=== PATIENT | female | born 1940 | race American Indian/Alaskan Native ===

== ENCOUNTER 2017-06-23 08:17 | Inpatient (IN) | payer MEDICARE ==
[2017-06-23 10:53] LABS: Basophils # (Auto) 0.1 K/mm3 (0.0-0.1); Basophils % (Auto) 0.7 % (0.0-1.8); Eosinophils # (Auto) 0.2 K/mm3 (0.0-0.4); Eosinophils % (Auto) 2.1 % (0.0-4.3); Hematocrit 40.6 % (30.3-42.9); Hemoglobin 13.9 gm/dl (10.1-14.3); Lymphocytes # (Auto) 2.7 K/mm3 (1.2-5.4); Lymphocytes % (Auto) 29.6 % (13.4-35.0); Mean Corpuscular HGB Conc 34 % (30-34); Mean Corpuscular Hemoglobin 31 pg (28-32); Mean Corpuscular Volume 91 fl (79-97); Monocytes # (Auto) 0.7 K/mm3 (0.0-0.8); Monocytes % (Auto) 7.1 % (0.0-7.3); Platelet Count 251 K/mm3 (140-440); Red Blood Count 4.45 M/mm3 (3.65-5.03)
[2017-06-23 11:04] LABS: Bacteria,Urine 2+ /HPF (Negative); Bilirubin,Urine NEG (Negative); Blood,Urine SM (Negative); Color,Urine Yellow (Yellow); Mucus,Urine FEW /HPF; Nitrite,Urine NEG (Negative); Urobilinogen,Urine < 2.0 mg/dL (<2.0)
[2017-06-23] MEDS ORDERED: NORCO 5/325 PO ONE (11:22)
--- NOTE | 2017-06-23 11:25 | XRay Report ---
LEFT HIP, 2 views: History: Left hip pain. Mild osteopenia is evident. Mild osteoarthritic changes are identified at the left hip. No evidence for fracture, dislocation or osteonecrosis. Diffuse vascular calcifications are noted IMPRESSION: Osteopenia. Mild osteoarthritic changes. No acute process identified.
--- NOTE | 2017-06-23 11:26 | XRay Report ---
LEFT TIBIA/FIBULA: History: Left leg pain. Mild osteopenia is evident. No evidence for fracture, bony destruction or bone lesion. The soft tissues are unremarkable. IMPRESSION: Osteopenia. Otherwise, unremarkable exam.
[2017-06-23 11:42] LABS: Albumin 4.2 g/dL (3.9-5); Calcium 10.4 mg/dL (8.4-10.2)
--- NOTE | 2017-06-23 11:59 | Emergency Department Report ---
ED General Adult HPI - General Chief complaint: Weakness Stated complaint: LEG PAIN Time Seen by Provider: 06/23/17 10:32 Source: EMS Mode of arrival: Stretcher Limitations: Physical Limitation - History of Present Illness Initial comments: Patient resides at home with her family who have brought her in today for evaluation. She states that she is weak and has had left knee pain. The symptoms have been present for at least 3 weeks. The family thought that the left thigh might be swollen. They brought her in for general evaluation. She does have a primary care physician. She is ordinarily able to walk with a walker. They state that she has left leg weakness from a previous stroke. They do not report any new weakness or any focal neurological symptoms. She denies fever or chills. She's had no abdominal pain no chest pain. The family has not observed any cough or shortness of breath. She is to have home health but does not have this currently. -: week(s) Location: left Radiation: non-radiation Severity scale (0 -10): 5 Quality: aching Consistency: intermittent Improves with: none Worsens with: none Treatments Prior to Arrival: none - Related Data Home Medications Medication Instructions Recorded Confirmed Last Taken Amlodipine Besylate [Norvasc] 10 mg PO QDAY 06/23/17 06/23/17 06/22/17 Clopidogrel Bisulfate [Plavix] 75 mg PO QDAY 06/23/17 06/23/17 06/22/17 Gabapentin [Neurontin] 300 mg PO QDAY 06/23/17 06/23/17 06/22/17 Hydrochlorothiazide [Hctz] 12.5 mg PO QDAY 06/23/17 06/23/17 06/22/17 Latanoprost 0.005% [Xalatan 0.005%] 1 drop OP QPM 06/23/17 06/23/17 06/22/17 Pravastatin [Pravachol] 40 mg PO DAILY 06/23/17 06/23/17 06/22/17 Allergies Allergy/AdvReac Type Severity Reaction Status Date / Time lisinopril Allergy Angioedema Verified 04/21/14 13:44 ED Review of Systems ROS: Stated complaint: LEG PAIN Other details as noted in HPI Constitutional: weakness. denies: chills, fever Eyes: denies: eye pain, eye discharge, vision change ENT: denies: ear pain, throat pain Respiratory: denies: cough, shortness of breath, wheezing Cardiovascular: denies: chest pain, palpitations Endocrine: no symptoms reported Gastrointestinal: denies: abdominal pain, nausea, diarrhea Genitourinary: denies: urgency, dysuria, discharge Musculoskeletal: denies: back pain, joint swelling, arthralgia Skin: denies: rash, lesions Neurological: denies: headache, weakness, paresthesias Psychiatric: denies: anxiety, depression Hematological/Lymphatic: denies: easy bleeding, easy bruising ED Past Medical Hx - Past Medical History Hx Hypertension: Yes Hx CVA: Yes Hx Diabetes: Yes - Surgical History Additional Surgical History: Brain surgery - Social History Smoking Status: Never Smoker Substance Use Type: None - Medications Home Medications: Home Medications Medication Instructions Recorded Confirmed Last Taken Type Amlodipine Besylate [Norvasc] 10 mg PO QDAY 06/23/17 06/23/17 06/22/17 History Clopidogrel Bisulfate [Plavix] 75 mg PO QDAY 06/23/17 06/23/17 06/22/17 History Gabapentin [Neurontin] 300 mg PO QDAY 06/23/17 06/23/17 06/22/17 History Hydrochlorothiazide [Hctz] 12.5 mg PO QDAY 06/23/17 06/23/17 06/22/17 History Latanoprost 0.005% [Xalatan 0.005%] 1 drop OP QPM 06/23/17 06/23/17 06/22/17 History Pravastatin [Pravachol] 40 mg PO DAILY 06/23/17 06/23/17 06/22/17 History ED Physical Exam - General Limitations: Physical Limitation General appearance: alert, in no apparent distress - Head Head exam: Present: atraumatic, normocephalic - Eye Eye exam: Present: normal appearance. Absent: scleral icterus - ENT ENT exam: Present: mucous membranes moist - Neck Neck exam: Present: normal inspection. Absent: tenderness, meningismus - Respiratory Respiratory exam: Present: normal lung sounds bilaterally. Absent: respiratory distress - Cardiovascular Cardiovascular Exam: Present: regular rate, normal rhythm. Absent: systolic murmur, diastolic murmur, rubs, gallop - GI/Abdominal GI/Abdominal exam: Present: soft, normal bowel sounds. Absent: distended, tenderness, guarding, rebound, rigid - Extremities Exam Extremities exam: Present: normal inspection, tenderness - Back Exam Back exam: Present: normal inspection - Neurological Exam Neurological exam: Present: alert, oriented X3, CN II-XII intact. Absent: motor sensory deficit - Psychiatric Psychiatric exam: Present: anxious, flat affect - Skin Skin exam: Present: warm, dry, intact, normal color. Absent: rash ED Course Vital Signs 06/23/17 09:22 Temperature 97.8 F Pulse Rate 75 Respiratory 18 Rate Blood Pressure 158/63 Blood Pressure 158/63 [Left] O2 Sat by Pulse 99 Oximetry - Reevaluation(s) Reevaluation #1: Discussed with Dr. Antoine. IV fluids initiated. The patient was admitted to the hospitalist service for further evaluation. It looks like she needs home health assistance. She is also really quite weak and may need further evaluation thereof. 06/23/17 14:37 ED Medical Decision Making - Lab Data Result diagrams: 06/23/17 10:29 06/23/17 10:29 Laboratory Results - last 24 hr 06/23/17 06/23/17 06/23/17 10:18 10:29 10:29 WBC 9.2 RBC 4.45 Hgb 13.9 Hct 40.6 MCV 91 MCH 31 MCHC 34 RDW 13.0 L Plt Count 251 Lymph % (Auto) 29.6 [place] % (Auto) 7.1 Eos % (Auto) 2.1 Baso % (Auto) 0.7 Lymph # 2.7 [place] # 0.7 Eos # 0.2 Baso # 0.1 Seg Neutrophils % 60.5 Seg Neutrophils # 5.5 Sodium 150 H Potassium 3.9 Chloride 109.1 H Carbon Dioxide 29 Anion Gap 16 BUN 19 H Creatinine 1.4 H Estimated GFR 44 BUN/Creatinine Ratio 14 Glucose 101 H Calcium 10.4 H Total Bilirubin 0.40 AST 16 ALT 11 Alkaline Phosphatase 53 Total Protein 7.4 Albumin 4.2 Albumin/Globulin Ratio 1.3 Urine Color Yellow Urine Turbidity Clear Urine pH 6.0 Ur Specific [place] 1.014 Urine Protein 30 mg/dl Urine Glucose (UA) Neg Urine Ketones Neg Urine Blood Sm Urine Nitrite Neg Urine Bilirubin Neg Urine Urobilinogen < 2.0 Ur Leukocyte Esterase Neg Urine WBC (Auto) 1.0 Urine RBC (Auto) 4.0 U Epithel Cells (Auto) 1.0 Urine Bacteria (Auto) 2+ Urine Mucus Few Critical care attestation.: If time is entered above; I have spent that time in minutes in the direct care of this critically ill patient, excluding procedure time. ED Disposition Clinical Impression: Hypernatremia, Volume depletion, Arthralgia of knee, left, Generalized weakness Disposition: DC-[id number] OP ADMIT IP TO THIS HOSP Is pt being admited?: Yes Does the pt Need Aspirin: Yes Condition: Stable Time of Disposition: 14:37
--- NOTE | 2017-06-23 12:14 | Cat Scan Report ---
CT HEAD WITHOUT CONTRAST: HISTORY: Left leg weakness. TECHNIQUE: Sequential CT images without contrast. FINDINGS: Advanced diffuse volume loss and chronic white matter changes are identified. A chronic cortical infarct high in the left posterior frontal lobe measures up to 2.4 cm. Chronic lacunar infarcts measuring less than 1 cm are identified in the right thalamus and posterior right cerebellar hemisphere. There is no evidence for hemorrhage, mass, extra-axial fluid collection or large area of acute ischemia on noncontrast CT. Ventricular size is prominent but symmetric which is probably secondary to volume loss. The left frontal sinus is opacified. There is partial opacification of the ethmoid air cells. The remaining visualized sinuses and mastoid air cells are clear. IMPRESSION: Evidence of atrophy and microangiopathic ischemic disease. Chronic focal infarcts as described. No acute intracranial process noted. Chronic sinus disease.
--- NOTE | 2017-06-23 13:03 | History and Physical Report ---
History of Present Illness Chief complaint: she is weak, and has pain in her leg History of present illness: 76 YO Female with HTN, CVA with RHP, DM presents to ED for evaluation. Pt nonverbal, and unable to provide history. Pt history provided by son, who is present during exam and interview. Pt son states that his mother has experienced weakness and pain in her left knee over the past 3 weeks, with persistent symptoms during the same time period. The family thought that the left thigh might be swollen. They brought her in for general evaluation. Son has also acknowledged decreased dietary intake, decreased interaction with family, and increased confusion over the past 1 month. No reports of fever, chills, CP, Palpitations, falls, trauma, NVD, syncope, seizures, vertigo, BRBPR , productive cough, or recent ill contacts. Pt seen and evaluated in ED and found to have acute renal failure. Pt initiated on IVF resuscitation therapy, and admitted to medical floor. Past History Past Medical History: diabetes, hypertension, stroke Past Surgical History: Other (Brain surgery) Social history: , lives with family. denies: smoking, alcohol abuse, prescription drug abuse Family history: hypertension Medications and Allergies Allergies Allergy/AdvReac Type Severity Reaction Status Date / Time lisinopril Allergy Angioedema Verified 04/21/14 13:44 Home Medications Medication Instructions Recorded Confirmed Last Taken Type Amlodipine Besylate [Norvasc] 10 mg PO QDAY 06/23/17 06/23/17 06/22/17 History Clopidogrel Bisulfate [Plavix] 75 mg PO QDAY 06/23/17 06/23/17 06/22/17 History Gabapentin [Neurontin] 300 mg PO QDAY 06/23/17 06/23/17 06/22/17 History Hydrochlorothiazide [Hctz] 12.5 mg PO QDAY 06/23/17 06/23/17 06/22/17 History Latanoprost 0.005% [Xalatan 0.005%] 1 drop OP QPM 06/23/17 06/23/17 06/22/17 History Pravastatin [Pravachol] 40 mg PO DAILY 06/23/17 06/23/17 06/22/17 History Active Meds: Active Medications Dextrose/Sodium Chloride (D5/0.45ns) 1,000 mls @ 125 mls/hr IV DIRECT GERALDINE Review of Systems ROS unobtainable: due to mental status Exam - Constitutional Vitals: Temp Pulse Resp BP Pulse Ox 97.8 F 75 18 158/63 99 06/23/17 09:22 06/23/17 09:22 06/23/17 09:22 06/23/17 09:22 06/23/17 09:22 General appearance: Present: mild distress - EENT Eyes: Present: PERRL ENT: hearing intact, clear oral mucosa - Neck Neck: Present: supple, normal ROM - Respiratory Respiratory effort: normal Respiratory: bilateral: diminished - Cardiovascular Heart Sounds: Present: S1 & S2. Absent: rub, click - Extremities Extremities: pulses symmetrical, No edema Peripheral Pulses: within normal limits - Abdominal General gastrointestinal: Present: soft Female genitourinary: Present: normal - Integumentary Integumentary: Present: clear, dry, clammy, decreased turgor - Musculoskeletal Musculoskeletal: generalized weakness - Psychiatric Psychiatric: no intact judgment & insight, no memory intact - Neurologic Neurologic: focal deficits, no moves all extremities, no gait normal Results - Labs CBC & Chem 7: 06/23/17 10:29 06/23/17 10:29 Labs: Abnormal lab results 06/23/17 06/23/17 Range/Units 10:29 10:29 RDW 13.0 L (13.2-15.2) % Sodium 150 H (137-145) mmol/L Chloride 109.1 H (98-107) mmol/L BUN 19 H (7-17) mg/dL Creatinine 1.4 H (0.7-1.2) mg/dL Glucose 101 H (65-100) mg/dL Calcium 10.4 H (8.4-10.2) mg/dL Assessment and Plan - Patient Problems (1) ARF (acute renal failure) Current Visit: Yes Status: Acute Qualifiers: Acute renal failure type: with acute tubular necrosis Qualified Code(s): N17.0 - Acute kidney failure with tubular necrosis Plan to address problem: IVF resuscitation therapy, supportive care, monitor uop q shift, monitor serum creatnine if worsening will consider urine electrolytes. (2) Dementia Current Visit: Yes Status: Acute Qualifiers: Dementia type: vascular dementia Dementia behavioral disturbance: without behavioral disturbance Qualified Code(s): F01.50 - Vascular dementia without behavioral disturbance Plan to address problem: Supportive care, CT head, neuro checks (3) Hypernatremia Current Visit: Yes Status: Acute Plan to address problem: IVF resuscitation, supportive care. (4) Volume depletion Current Visit: Yes Status: Acute Plan to address problem: encourage free water intake as tolerated, aspiration precautions, (5) DVT prophylaxis Current Visit: Yes Status: Acute
[2017-06-23] MEDS ORDERED: ZOFRAN IV PRN (13:04)
[2017-06-23] MEDS ORDERED: TYLENOL PO PRN (13:04)
[2017-06-23] MEDS ORDERED: NACL 0.45% 1000 ML 1,000 ML IV SCH (14:00)
--- NOTE | 2017-06-23 14:06 | XRay Report ---
AP CHEST: HISTORY: Hypertension There is poor inspiration. AP view of the chest demonstrates a normal mediastinal and cardiac contour with clear lungs and normal bony and soft tissue structures. IMPRESSION: Unremarkable AP chest.
[2017-06-23] MEDS: D5/0.45NS 1,000 ML IV SCH (14:09)
[2017-06-24 09:11] LABS: Calcium 9.3 mg/dL (8.4-10.2)
[2017-06-24] MEDS: BABY ASPIRIN PO SCH (10:00)
--- NOTE | 2017-06-24 15:27 | XRay Report ---
LEFT FEMUR, 2 VIEWS LEFT KNEE, 2 VIEWS History: Pain. Findings: There is borderline osteopenia. No evidence for fracture or come out malalignment, bone lesion or bony destruction. There are mild osteoarthritic changes at the left hip and left knee. Diffuse vascular calcifications are noted. Impression: No evidence for fracture. Mild degenerative changes. Peripheral vascular disease.
--- NOTE | 2017-06-24 15:31 | Progress Note ---
Assessment and Plan /ARF (acute renal failure) Likely due to vasomotor nephropathy IVF resuscitation therapy, supportive care, monitor uop q shift, monitor serum creatnine if worsening will consider urine electrolytes. / Dementia Supportive care, CT head unremarkable, cont neuro checks /Hypernatremia likely due to dehydration IVF resuscitation, supportive care. / Volume depletion encourage free water intake as tolerated, aspiration precautions, /left leg pain - xrys showed no fractures - will do uric acid level check and PT eval / DVT prophylaxis heparin Physical exam: General appearance: Present: no distress - EENT Eyes: Present: PERRL ENT: hearing intact, clear oral mucosa - Neck Neck: Present: supple, normal ROM - Respiratory Respiratory effort: normal Respiratory: bilateral: diminished - Cardiovascular Heart Sounds: Present: S1 & S2. Absent: rub, click - Extremities Extremities: pulses symmetrical, No edema Peripheral Pulses: within normal limits - Abdominal General gastrointestinal: Present: soft Female genitourinary: Present: normal - Integumentary Integumentary: Present: clear, dry, clammy, decreased turgor - Musculoskeletal Musculoskeletal: generalized weakness, unable to move left LE - Psychiatric Psychiatric: no intact judgment & insight, no memory intact - Neurologic Neurologic: no moves all extremities, no gait normal Subjective Date of service: 06/24/17 Interval history: Pt seen and examined c/o left leg pain and unable to move left leg due to pain Objective - Constitutional Vitals: Vital Signs - 12hr 06/24/17 06/24/17 06/24/17 03:36 08:13 09:01 Temperature 98.2 F 98.4 F Pulse Rate 57 L 64 Respiratory 14 18 Rate Blood Pressure 170/77 177/74 O2 Sat by Pulse 97 97 98 Oximetry 06/24/17 12:41 Temperature 98.8 F Pulse Rate 52 L Respiratory 16 Rate Blood Pressure 164/84 O2 Sat by Pulse 97 Oximetry - Labs CBC & Chem 7: 06/23/17 10:29 06/24/17 08:38
[2017-06-24] MEDS: D5/0.45NS 1,000 ML IV SCH (23:22)
[2017-06-25 07:13] LABS: BUN/Creatinine Ratio 17; Blood Urea Nitrogen 15 mg/dL (7-17); Calcium 9.3 mg/dL (8.4-10.2); Hemolysis Index 5
[2017-06-25] MEDS: D5/0.45NS 1,000 ML IV SCH (10:03)
[2017-06-25] MEDS: BABY ASPIRIN PO SCH (10:04)
--- NOTE | 2017-06-25 12:06 | Discharge Summary ---
Providers - Providers Date of Admission: 06/23/17 13:04 Date of discharge: 06/25/17 Attending physician: FILOMENA PRUITT 06/24/17 08:30 Speech Therapy Evaluation and Treat [CONS] Routine Reason For Exam: aspiration 06/24/17 15:28 Physical Therapy Evaluation and Treat [CONS] Routine Comment: Reason For Exam: d/c clearance Primary care physician: ATILIO YORK Hospitalization Condition: Stable Hospital course: 76 y/p AAF with h/o dementia limited physical activities presented with left leg pain mainly on her knee joint. In the ER she also noted to have elevated creatinine and hypernatremia. She was admitted for further evaluation and management. Discharge diagnosis management: /left leg/knee pain - likely due to osteopenia and osteoarthritis - xrys showed no fractures - normal uric acid level and s/p PT eval and recommended PT - recommended bone scan outpt /ARF (acute renal failure) Likely due to vasomotor nephropathy, resolved s/p IVF resuscitation therapy, supportive care, monitored uop q shift, / Dementia Supportive care, CT head unremarkable /Hypernatremia likely due to dehydration Improved with IVF resuscitation / Volume depletion encourage free water intake as tolerated, aspiration precautions, / DVT prophylaxis heparin Physical exam: General appearance: Present: no distress - EENT Eyes: Present: PERRL ENT: hearing intact, clear oral mucosa - Neck Neck: Present: supple, normal ROM - Respiratory Respiratory effort: normal Respiratory: bilateral: diminished - Cardiovascular Heart Sounds: Present: S1 & S2. Absent: rub, click - Extremities Extremities: pulses symmetrical, No edema Peripheral Pulses: within normal limits - Abdominal General gastrointestinal: Present: soft Female genitourinary: Present: normal - Integumentary Integumentary: Present: clear, dry, clammy, decreased turgor - Musculoskeletal Musculoskeletal: generalized weakness, unable to move left LE - Psychiatric Psychiatric: no intact judgment & insight, no memory intact - Neurologic Neurologic: no moves all extremities, no gait normal Disposition: DC/[place]-06 HOME UNDER HOME HLTH Time spent for discharge: 32 minutes Core Measure Documentation - Palliative Care Palliative Care/ Comfort Measures: Not Applicable - Core Measures Any of the following diagnoses?: none Exam - Constitutional Vitals: Temp Pulse Resp BP Pulse Ox 98.8 F 64 16 170/77 98 06/25/17 11:12 06/25/17 11:12 06/25/17 11:12 06/25/17 11:12 06/25/17 11:12 Plan Activity: advance as tolerated Weight Bearing Status: Non-Weight Bearing Diet: per dietitian instruction (pureed diet and thin liquid) Additional Instructions: Bone scan outpatient. F/u with PCP in one week. Follow up with: PRIMARY CARE, [Referring] - 3-5 Days
[2017-06-25] MEDS ORDERED: APRESOLINE IV PRN (12:08)
[2017-06-25] MEDS ORDERED: NORVASC PO SCH (13:00)
[2017-06-25 16:17] VITALS: BP 150/80
== END 2017-06-25 16:24 | disposition home health service (06) | DRG 553 ==
LOC: ED 08:17 → 3A 13:04
PROVIDERS: ADMIT Internal Medicine; ATTEND Internal Medicine
DX: M17.12 Unilateral primary osteoarthritis, left knee (principal); N17.0 Acute kidney failure with tubular necrosis; E87.0 Hyperosmolality and hypernatremia; F03.90 Unspecified dementia, unspecified severity, without behavioral disturbance, psychotic disturbance, mood disturbance, and anxiety; E86.9 Volume depletion, unspecified; Z88.8 Allergy status to other drugs, medicaments and biological substances; I10 Essential (primary) hypertension; E11.9 Type 2 diabetes mellitus without complications; M25.562 Pain in left knee; Z82.49 Family history of ischemic heart disease and other diseases of the circulatory system; I69.344 Monoplegia of lower limb following cerebral infarction affecting left non-dominant side
CPT/HCPCS: 36415; 70450; 71045; 80048; 80053; 81001; 82306; 84550; 85025; 93005; 93010; 96374; G8978-GP; G8979-GP; G8980-GP; G8996-GN; G8997-GN; J0360